=== PATIENT | female | born 1935 | race Caucasian/White ===

== ENCOUNTER 2022-07-14 11:56 | Inpatient (IN) | payer MEDICARE, OTHER ==
[~2022-07-14] VITALS: Ht 165.1 cm; Wt 60.8 kg
[2022-07-15 20:40] VITALS: BP 127/59
[2022-07-15] MEDS ORDERED: NITR100C6 PO (22:39)
[2022-07-15] MEDS ORDERED: LOSA100T31 PO (22:39)
[2022-07-15] MEDS ORDERED: RISP0.5T5 PO (22:39)
[2022-07-15] MEDS ORDERED: MIRT-93 PO (22:39)
[2022-07-15] MEDS ORDERED: AMLO10TA4 PO (22:39)
[2022-07-15] MEDS ORDERED: REMEDY ESSENTIAL ZINC PASTE 113 GM TOP PRN (22:45)
[2022-07-15] MEDS: NITROFURANTOIN/NITROFURAN MAC 100 MG CAPSULE PO SCH (23:31)
[2022-07-15] MEDS: risperiDONE 0.5 MG TABLET PO SCH (23:31)
[2022-07-15] MEDS: ACETAMINOPHEN ES 500 MG TABLET PO PRN (23:31)
[2022-07-15] MEDS: MIRTAZAPINE 15 MG TABLET PO SCH (23:31)
[2022-07-16 04:50] VITALS: BP 132/65
[2022-07-16] MEDS: OXYCODONE HCL 5 MG TABLET PO PRN ×2 (07:46→17:40)
[2022-07-16 07:59] VITALS: BP 128/55
[2022-07-16] MEDS: NITROFURANTOIN/NITROFURAN MAC 100 MG CAPSULE PO SCH ×2 (08:24→17:41)
[2022-07-16] MEDS: AMLODIPINE 10 MG TABLET PO SCH (08:24)
[2022-07-16] MEDS: LOSARTAN POTASSIUM 50 MG TABLET PO SCH (08:24)
[2022-07-16 16:07] VITALS: BP 116/56
[2022-07-16 20:33] VITALS: BP 150/60
[2022-07-16] MEDS: MIRTAZAPINE 15 MG TABLET PO SCH (20:46)
[2022-07-16] MEDS: risperiDONE 0.5 MG TABLET PO SCH (20:46)
[2022-07-17 04:12] VITALS: BP 133/62
--- NOTE | 2022-07-17 05:45 | NUR ---
patient is alert, oriented to herself and family, no sob, respirations are even nonlabored, skin warm and dry to to touch, right hip incision is dry and clean, dressing in place, both heel skin inspected no issues noted, floated on the pillows, sacral area skin inspected, no issues noted, turned and repositioned every 2 hours while in bed, no events or distress noted overnight.
[2022-07-17] MEDS: OXYCODONE HCL 5 MG TABLET PO PRN (06:00)
[2022-07-17] MEDS: NITROFURANTOIN/NITROFURAN MAC 100 MG CAPSULE PO SCH ×2 (06:00→17:47)
[2022-07-17 08:00] VITALS: BP 138/78
[2022-07-17] MEDS: LOSARTAN POTASSIUM 50 MG TABLET PO SCH (09:01)
[2022-07-17] MEDS: AMLODIPINE 10 MG TABLET PO SCH (09:01)
[2022-07-17 15:38] VITALS: BP 126/55
--- NOTE | 2022-07-17 19:00 | NUR ---
RECD PT IN BED, NO DISTRESS NOTED, REPOSITIONED FOR COMFORT,NEEDS ATTENDED TO.CHECKED FOR ANY DISCOMFORTS.
--- NOTE | 2022-07-17 19:00 | NUR ---
RECD PT IN BED, ALERT/ORIENTEDX3, ABLE TO MAKE NEEDS KNOWN, REPOSITIONED FOR COMFORT.CHECK BLADDER FOR DISTENTION, NONE NOTED. NO COMPLAINTS OF PAIN PRESENTED.
--- NOTE | 2022-07-17 19:16 | NUR ---
BED ALARM NOT WORKING: Engineering here to assess bed at 1850, stated that everything would need to be removed from bed, including pt, in order to fix the problem. Endorsed to night nurse who said that she will change the pt's bed tonight.
[2022-07-17 20:00] VITALS: BP 102/63
[2022-07-17] MEDS: MIRTAZAPINE 15 MG TABLET PO SCH (21:26)
[2022-07-17] MEDS: risperiDONE 0.5 MG TABLET PO SCH (21:26)
--- NOTE | 2022-07-18 | NUR ---
HAD A QUIET NOC.
[2022-07-18 04:00] VITALS: BP 138/66
[2022-07-18] MEDS: NITROFURANTOIN/NITROFURAN MAC 100 MG CAPSULE PO SCH ×2 (06:27→17:28)
[2022-07-18 06:44] LABS: HEMATOCRIT 25.1 % (31.2-41.9); MEAN CORPUSCULAR HEMOGLOBIN 29.3 uug (24.7-32.8); MEAN CORPUSCULAR VOLUME 84.4 fL (75.5-95.3); PLATELET COUNT (AUTO) 277 K/uL (179-408)
[2022-07-18 07:25] LABS: THYROID STIMULATING HORMONE 1.461 mIU/mL (0.358-3.740)
[2022-07-18 07:51] LABS: ALANINE AMINOTRANSFERASE 22 U/L (14-59); ALKALINE PHOSPHATASE 83 U/L (50-136); ASPARTATE AMINOTRANSFERASE 34 U/L (15-37); BILIRUBIN,TOTAL 0.5 mg/dL (0.2-1.0); CARBON DIOXIDE 28 mmol/L (21-32); CHLORIDE 101 mmol/L (98-107); CHOLESTEROL 175 mg/dL (<200); CREATININE 1.2 mg/dL (0.6-1.3); GLUCOSE 123 mg/dL (74-106); HDL CHOLESTEROL 40 mg/dL (40-60); PHOSPHOROUS 3.1 mg/dL (2.5-4.9); POTASSIUM 3.6 mmol/L (3.5-5.1); TOTAL PROTEIN, SERUM 6.2 g/dL (6.4-8.2); TRIGLYCERIDES 108 MG/DL (30-150); UREA NITROGEN, BLOOD 33 mg/dL (7-18)
[2022-07-18 08:00] VITALS: BP 112/44
[2022-07-18] MEDS: AMLODIPINE 10 MG TABLET PO SCH (09:03)
[2022-07-18] MEDS: LOSARTAN POTASSIUM 50 MG TABLET PO SCH (09:03)
[2022-07-18] MEDS: ACETAMINOPHEN ES 500 MG TABLET PO PRN (09:04)
--- NOTE | 2022-07-18 09:19 | NUR ---
INDIVIDUALIZED PLAN OF CARE
[2022-07-18 16:00] VITALS: BP 105/52
[2022-07-18] MEDS: GLUCERNA SHAKE 237 ML CAN PO SCH (17:36)
--- NOTE | 2022-07-18 19:00 | NUR ---
resting in bed,alert and oriented x3, no acute distress noted.needs attended to.kept dry and clean.
--- NOTE | 2022-07-18 19:24 | NUR ---
RECEIVED REPORT FROM [facility] SHIFT RN. PATIENT IS ALERT AND ORIENTED X1-[address] [place] WITH MINIMAL BHUTANESE. VITAL SIGNS STABLE. PATIENT TOLERATES PO MEDICATIONS AND DIET WELL. PATIENT HAD COMPLAINT OF PAIN. RN GAVE PAIN MEDIATIONS ORDERED. PATIENT EXPRESSED RELIEF. PATIENT PARTICIPATES WITH PHYSICAL AND OCCUPATIONAL THERAPY PER SCHEDULE. PATIENT VOIDS ADEQUATELY. FAMILY VISITED PATIENT. UPDATED ON PLAN OF CARE. NO ACUTE DISTRESS. ALL NEEDS MET AT THIS TIME. CALL LIGHT WITHIN REACH. FALL PRECAUTIONS IN PLACE. RN ENDORSED CONTINUATION OF CARE TO [facility] SHIFT RN.
[2022-07-18 20:10] VITALS: BP 136/64
[2022-07-18] MEDS: MIRTAZAPINE 15 MG TABLET PO SCH (21:38)
[2022-07-18] MEDS: risperiDONE 0.5 MG TABLET PO SCH (21:40)
[2022-07-18] MEDS: OXYCODONE HCL 5 MG TABLET PO PRN (22:19)
--- NOTE | 2022-07-18 22:19 | NUR ---
medicated for left hip pain,relief afforded after an hour, slept at short intervals. call lite w/i abraham.
--- NOTE | 2022-07-19 03:22 | NUR ---
abductor pillow in place. repositioned.
[2022-07-19 04:21] VITALS: BP 110/50
--- NOTE | 2022-07-19 06:30 | NUR ---
BLADDER SCAN DONE 645 ML. NOTED, STRAIGHT CATH ASEPTICALLY ,OBTAINED 650 ML OF YANETH URINE,PROCEDURE TOLERATED WELL BY PT.CLEANED AND KEPT DRY.
[2022-07-19] MEDS: OXYCODONE HCL 5 MG TABLET PO PRN ×2 (06:51→06:52)
[2022-07-19] MEDS: NITROFURANTOIN/NITROFURAN MAC 100 MG CAPSULE PO SCH (06:51)
[2022-07-19 07:34] VITALS: BP 117/61
--- NOTE | 2022-07-19 07:47 | NUR ---
ENDORSED TO AM NURSE,PAIN MED GIVEN.CONTINUE MONITOR EFFECTIVENESS OF MED.
[2022-07-19] MEDS: AMLODIPINE 10 MG TABLET PO SCH (09:00)
[2022-07-19] MEDS: LOSARTAN POTASSIUM 50 MG TABLET PO SCH ×2 (09:00→14:19)
[2022-07-19] MEDS: GLUCERNA SHAKE 237 ML CAN PO SCH ×2 (09:43→17:13)
[2022-07-19] MEDS: PROTEIN SUPPLEMENT (PROSTAT) 30 ML LIQUID PO SCH (09:44)
--- NOTE | 2022-07-19 14:25 | NUR ---
DAUGHTER CAME TO VISIT THE PATIENT. PATIENT NOTED TO BE REFUSING PHYSICAL THERAPY. FAMILY NOTED PATIENT SHAKING. PATIENT'S DAUGHTER REQUESTED HER BLOOD PRESSURE BE TAKEN. PHYSICAL THERAPISTS NOTED BLOOD PRESSURE AT 122/42. PATIENT DAUGHTER EXPRESSED CONCERN WITH RN FOR NOT GIVING BLOOD PRESSURE MEDICATION IN THE MORNING. RN NOTIFIES PATIENT DAUGHTER THAT BLOOD PRESSURE WAS 99/48 AND RN HELD RN FELT IT WAS UNSAFE TO GIVEN. PATIENT DAUGHTER'S VERBALIZED: "IF HER BLOOD PRESSURE WAS LOW, THEN WAIT 1-2 HOURS. YOU CANNOT SKIP MEDICATION." RN EDUCATES DAUGHTER REGARDING THE RISK FOR DROPPING HER BLOOD PRESSURE. PATIENT DAUGHTER STATES SHE UNDERSTANDS, HOWEVER HAS ISSUES WITH BLOOD PRESSURE REGIME. PATIENT REQUESTS LOSARTAN TO BE GIVEN NOW, AND AMLODIPINE TO BE GIVEN LATER AT 1999. AFTER TODAY, PATIENT WANTS LOSARTAN TO BE GIVEN AT 10:30AM AND AMLODIPINE TO BE SCHEDULED FOR 1800. RN REQUEST CHANGES WITH PHARMACY. PATIENT STABLE. NO SIGNS AND SYMPTOMS OF ACUTE DISTRESS. PLAN OF CARE CONTINUES.
[2022-07-19 16:02] VITALS: BP 109/52
[2022-07-19 20:00] VITALS: BP 117/56
[2022-07-19] MEDS ORDERED: AMLODIPINE 10 MG TABLET PO ONE (20:00)
--- NOTE | 2022-07-19 20:04 | NUR ---
RECEIVED REPORT FROM [facility] SHIFT RN. PATIENT IS ALERT AND ORIENTED X1-2 AND SPEAKS CITIZEN OF [place] WITH MINIMAL MALTESE. VITAL SIGNS STABLE. PATIENT TOLERATES PO MEDICATIONS AND DIET WELL. HOWEVER REFUSES TO EAT MUCH DURING SHIFT. RN ENCOURAGES PATIENT TO EAT, HOWEVER PATIENT CONTINUES TO PUSH FOOD/TRAY AWAY. PATIENT DENIES PAIN. PATIENT PARTICIPATES WITH PHYSICAL AND OCCUPATIONAL THERAPY PER SCHEDULE. PATIENT VOIDS ADEQUATELY. FAMILY VISITED PATIENT. RN CHANGED BLOOD PRESSURE TIME PER FAMILY REQUEST. RN BLADDER SCAN PATIENT AT 1350 NOTED 275CC AND 300CC IN BLADDER. RN SCAN PATIENT AT 1730 NOTED 523CC. RN INSERTED STRAIGHT CATHETER INTO PATIENT WITH FELLOW RN. ABLE TO DRAIN 500CC OF URINE. BLADDER NO LONGER DISTENDED. NO ACUTE DISTRESS. ALL NEEDS MET AT THIS TIME. CALL LIGHT WITHIN REACH. FALL PRECAUTIONS IN PLACE. RN ENDORSED CONTINUATION OF CARE TO [facility] SHIFT RN.
[2022-07-19] MEDS: MIRTAZAPINE 15 MG TABLET PO SCH (20:25)
[2022-07-19] MEDS: risperiDONE 0.5 MG TABLET PO SCH (20:26)
[2022-07-20 04:00] VITALS: BP 134/57
--- NOTE | 2022-07-20 05:48 | NUR ---
Pt didn't void since last straight cath. Bladder scan done every 6-8 hrs. At 0030 scanned 160 ml. At 0530 scanned 221 ml. Bladder not distended. Straight cath not yet indicated. Will endorse to incoming shift.
[2022-07-20] MEDS: PROTEIN SUPPLEMENT (PROSTAT) 30 ML LIQUID PO SCH (08:48)
[2022-07-20] MEDS: GLUCERNA SHAKE 237 ML CAN PO SCH ×2 (08:48→17:11)
[2022-07-20 08:56] VITALS: BP 103/73
[2022-07-20] MEDS: LOSARTAN POTASSIUM 50 MG TABLET PO SCH (10:30)
--- NOTE | 2022-07-20 10:45 | NUR ---
Patient blood pressure is 103/73, pulse 69, Losartan 100 mg not given.
[2022-07-20 12:30] VITALS: BP 106/74
--- NOTE | 2022-07-20 13:39 | NUR ---
INTERDISCIPLINARY TEAM CONFERENCE
--- NOTE | 2022-07-20 14:01 | NUR ---
Patient was unable to void, bladder was scanned at 13:30, 306 ml retained, since it's less than 400 ml, no straight indicated yet.
--- NOTE | 2022-07-20 16:00 | NUR ---
Patient is received in her room. Patient is A/O X 2 to person, place. Patient is compliant with medications, confused at times, resistant to care, vital signs within normal limits, no distress noted, denies pain or any discomfort. Patient presents soft abdomen but still not voiding, patient will be scanned again and straight cath as needed.
[2022-07-20 16:59] VITALS: BP 109/54
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
[2022-07-20] MEDS: AMLODIPINE 10 MG TABLET PO SCH (17:13)
--- NOTE | 2022-07-20 18:41 | NUR ---
Patient was bladder scanned with a total of 412 ml. Patient was straight cath and 400 ml was removed from her bladder.
[2022-07-20 20:00] VITALS: BP 124/58
[2022-07-20] MEDS: MIRTAZAPINE 15 MG TABLET PO SCH (20:30)
[2022-07-20] MEDS: risperiDONE 0.5 MG TABLET PO SCH (20:30)
[2022-07-20 20:33] VITALS: BP 117/54
[2022-07-21 04:00] VITALS: BP 134/78
--- NOTE | 2022-07-21 07:45 | NUR ---
Bladder scan done, 355 ml. Pt hasn't voided on her own for 3 days. Guzmán catheter inserted aseptically as ordered.
[2022-07-21] MEDS: PROTEIN SUPPLEMENT (PROSTAT) 30 ML LIQUID PO SCH (08:00)
[2022-07-21] MEDS: GLUCERNA SHAKE 237 ML CAN PO SCH ×2 (09:41→17:27)
[2022-07-21 10:30] VITALS: BP 105/50
[2022-07-21] MEDS: LOSARTAN POTASSIUM 50 MG TABLET PO SCH (10:30)
[2022-07-21 11:48] VITALS: BP 101/50
--- NOTE | 2022-07-21 13:04 | NUR ---
Nursing- Patient remains with apodaca catheter intact, secured , draining yellow james urine connected to drainage bag. Monitored b/p , running low, 85/45 HR 63 will rechecked again in a later time, denies any dizziness .
[2022-07-21] MEDS: ACETAMINOPHEN ES 500 MG TABLET PO PRN (14:05)
[2022-07-21 15:21] VITALS: BP 140/56
--- NOTE | 2022-07-21 16:06 | NUR ---
Nursing - Not interactive, but making her simple needs known to the staff. Per Unit Sec. patient's daughter was in to visit patient, appeared in a calmer mood ,was encouraged to verbalized any questions she needed some answers .Patient was repositioned at a regular intervals.
[2022-07-21] MEDS: AMLODIPINE 10 MG TABLET PO SCH (17:29)
[2022-07-21 20:00] VITALS: BP 128/58
[2022-07-21] MEDS: MIRTAZAPINE 15 MG TABLET PO SCH (21:27)
[2022-07-21] MEDS: risperiDONE 0.5 MG TABLET PO SCH (21:27)
[2022-07-22 04:00] VITALS: BP 131/60
[2022-07-22 07:57] VITALS: BP 129/98
--- NOTE | 2022-07-22 08:00 | NUR ---
Received patient in bed conscious and coherent. With apodaca catheter intact connected to urine bag draining well. No signs of distress. No SOB. Vital signs taken and recorded Needs attended
[2022-07-22 08:42] LABS: HEMATOCRIT 24.7 % (31.2-41.9); MEAN CORPUSCULAR HEMOGLOBIN 28.7 uug (24.7-32.8); MEAN CORPUSCULAR VOLUME 85.1 fL (75.5-95.3); PLATELET COUNT (AUTO) 356 K/uL (179-408)
[2022-07-22] MEDS: PROTEIN SUPPLEMENT (PROSTAT) 30 ML LIQUID PO SCH (08:49)
[2022-07-22] MEDS: GLUCERNA SHAKE 237 ML CAN PO SCH ×2 (08:49→17:50)
[2022-07-22 08:50] LABS: CARBON DIOXIDE 28 mmol/L (21-32); CHLORIDE 104 mmol/L (98-107); CREATININE 1.1 mg/dL (0.6-1.3); GLUCOSE 108 mg/dL (74-106); POTASSIUM 3.7 mmol/L (3.5-5.1); UREA NITROGEN, BLOOD 41 mg/dL (7-18)
[2022-07-22] MEDS: LOSARTAN POTASSIUM 50 MG TABLET PO SCH (10:42)
[2022-07-22] MEDS: ACETAMINOPHEN ES 500 MG TABLET PO PRN (14:40)
[2022-07-22 16:14] VITALS: BP 129/66
[2022-07-22] MEDS: AMLODIPINE 10 MG TABLET PO SCH (17:49)
[2022-07-22 20:09] VITALS: BP 108/51
[2022-07-22] MEDS: MIRTAZAPINE 15 MG TABLET PO SCH (20:29)
[2022-07-22] MEDS: OXYCODONE HCL 5 MG TABLET PO PRN (20:29)
[2022-07-22] MEDS: risperiDONE 0.5 MG TABLET PO SCH (20:30)
--- NOTE | 2022-07-23 04:27 | NUR ---
AAOx4 Admitted for left hip athroplasty. VSS Left hip dressing clean dry and intact. Guzmán cathetr intact draining yellow urine. All needs attended. Kept comfortable. All due meds given. No complaints presented during the shift. Will monitor patient.
[2022-07-23 07:34] VITALS: BP 110/49
[2022-07-23] MEDS: PROTEIN SUPPLEMENT (PROSTAT) 30 ML LIQUID PO SCH (08:24)
[2022-07-23] MEDS: GLUCERNA SHAKE 237 ML CAN PO SCH ×2 (08:24→17:39)
[2022-07-23] MEDS: LOSARTAN POTASSIUM 50 MG TABLET PO SCH (10:20)
[2022-07-23] MEDS: OXYCODONE HCL 5 MG TABLET PO PRN (14:20)
--- NOTE | 2022-07-23 14:20 | NUR ---
Patient complaining of pain 8/10 pain score, Oxycodone 5mg tab given as ordered. Observed accordingly
--- NOTE | 2022-07-23 15:30 | NUR ---
Seen by physical therapist
[2022-07-23 16:00] VITALS: BP 101/65
--- NOTE | 2022-07-23 17:30 | NUR ---
Seen and examined by Dr. Mathur, informed of the redness/blister on right heel and left foot. Applied xeroform covered with gauze to protect the heels. Offloading on both heels. Ordered wound consult and air bed mattress. Closely monitored Addendum: 07/23/22 at 1824 by JAMIR JOSHUA RN Correction right heel redness/blister and left heel redness. Seen by Dr. Mathur
[2022-07-23] MEDS: AMLODIPINE 10 MG TABLET PO SCH (17:39)
--- NOTE | 2022-07-23 18:06 | NUR ---
Changed wound dressing on left hip clean and dry. Turn patient from side to side every 2 hours. Needs attended
[2022-07-23] MEDS: MIRTAZAPINE 15 MG TABLET PO SCH (20:30)
[2022-07-23] MEDS: risperiDONE 0.5 MG TABLET PO SCH (20:30)
[2022-07-23 20:40] VITALS: BP 113/53
--- NOTE | 2022-07-24 03:55 | NUR ---
AAOx 3-4 Left hip dressing clean dry and intact. VSS Fall precautions maintained. Bilateral heel elevated up on pillow. Guzmán catheter intact draining yellow urine. All needs attended. Abduction pillow in between legs. All due meds given without difficulty. No acute distress noted. Kept comfortable.
[2022-07-24 04:38] VITALS: BP 128/55
--- NOTE | 2022-07-24 07:30 | NUR ---
[facility] Nursing Notes: Patient in bed awake, verbally responsive, no S/S of discomfort or distress noted. Abduction pillow in between legs as ordered, fall and safety precaution implemented. call light with in reach. Will continue to monitor.
[2022-07-24 07:48] VITALS: BP 125/62
[2022-07-24] MEDS: GLUCERNA SHAKE 237 ML CAN PO SCH ×2 (07:51→17:00)
[2022-07-24] MEDS: PROTEIN SUPPLEMENT (PROSTAT) 30 ML LIQUID PO SCH (07:51)
[2022-07-24] MEDS: LOSARTAN POTASSIUM 50 MG TABLET PO SCH (10:27)
[2022-07-24] MEDS: OXYCODONE HCL 5 MG TABLET PO PRN (14:55)
[2022-07-24 15:44] VITALS: BP 119/64
[2022-07-24] MEDS: AMLODIPINE 10 MG TABLET PO SCH (17:47)
[2022-07-24] MEDS: MIRTAZAPINE 15 MG TABLET PO SCH (20:30)
[2022-07-24] MEDS: risperiDONE 0.5 MG TABLET PO SCH (20:31)
[2022-07-24 20:57] VITALS: BP 115/58
[2022-07-25 04:23] VITALS: BP 142/70
[2022-07-25] MEDS: OXYCODONE HCL 5 MG TABLET PO PRN ×2 (05:05→13:37)
[2022-07-25 08:04] VITALS: BP 141/71
[2022-07-25] MEDS: PROTEIN SUPPLEMENT (PROSTAT) 30 ML LIQUID PO SCH (09:25)
[2022-07-25] MEDS: GLUCERNA SHAKE 237 ML CAN PO SCH ×2 (09:25→17:25)
[2022-07-25] MEDS: LOSARTAN POTASSIUM 50 MG TABLET PO SCH (11:10)
--- NOTE | 2022-07-25 12:54 | NUR ---
WOUND CARE CONSULT: PT PRESENTS WITH RT LATERAL LOWER LEG SKIN TEAR AND BILATERAL HEEL INTACT BLISTERS. PT HAS BEEN UNCOOPERATIVE AT TIMES, PER NURSING STAFF. DR LESTER CALLED FOR DPM CONSULT. DISCUSSED SKIN PROTECTION WITH NURSING STAFF. [facility] IN AGREEMENT WITH PLAN OF CARE.
[2022-07-25] MEDS ORDERED: BISACODYL 10 MG SUPP.RECT RC PRN (13:30)
--- NOTE | 2022-07-25 13:30 | NUR ---
Pt's dtr Gene and Pt's at bedside. Gene asking if her mother's pain meds can be scheduled instead on PRN because of her confusion and inability to communicate pain, Dr. Ramachandran notified, he updated her pain medication orders. Gene states that she has spoken to Peter, Perioperative Nurse, already but she still has concerns about her mom coming home in a week, about her still needing a apodaca catherter and who will care for it. Pt would like to speak to an MD. I notified Dr. Ramachandran who will be back tomorrow. Will endorse questions to night nurse to have an MD talk to the dtr next time she is here.
[2022-07-25 15:05] VITALS: BP 141/87
[2022-07-25] MEDS: AMLODIPINE 10 MG TABLET PO SCH (18:29)
--- NOTE | 2022-07-25 20:00 | NUR ---
NSG: Received patient lying in bed. alert and oriented x4. admitted for left hip arthroplasty. VSS Left hip dressing clean dry and intact. f/c patent draining yellow urine. All needs attended. Kept comfortable. All due meds given. call light w/in reach.
[2022-07-25 20:26] VITALS: BP 137/53
[2022-07-25] MEDS: risperiDONE 0.5 MG TABLET PO SCH (21:21)
[2022-07-25] MEDS: OXYCODONE/APAP 5-325 MG TABLET PO SCH (21:21)
[2022-07-25] MEDS: MIRTAZAPINE 15 MG TABLET PO SCH (21:21)
[2022-07-26] MEDS: OXYCODONE HCL 5 MG TABLET PO PRN (02:43)
[2022-07-26 04:55] VITALS: BP 122/60
--- NOTE | 2022-07-26 05:00 | NUR ---
Nursing - resting in bed comfortably. patient is not interactive, but making her simple needs known to the staff. prn for pain given x1 and effective. Patient was repositioned at a regular intervals. kept clean and dry. keep the both heals off the bed with pillow. call light w/in reach.
[2022-07-26] MEDS: OXYCODONE/APAP 5-325 MG TABLET PO SCH ×3 (06:11→21:28)
[2022-07-26 07:44] VITALS: BP 109/47
[2022-07-26 08:00] VITALS: BP 113/53
[2022-07-26] MEDS: GLUCERNA SHAKE 237 ML CAN PO SCH ×2 (08:00→17:00)
[2022-07-26] MEDS: PROTEIN SUPPLEMENT (PROSTAT) 30 ML LIQUID PO SCH (08:00)
[2022-07-26] MEDS: LOSARTAN POTASSIUM 50 MG TABLET PO SCH (11:03)
[2022-07-26 15:04] VITALS: BP 121/83
[2022-07-26] MEDS: AMLODIPINE 10 MG TABLET PO SCH (18:00)
[2022-07-26] MEDS: MIRTAZAPINE 15 MG TABLET PO SCH (20:42)
[2022-07-26] MEDS: risperiDONE 0.5 MG TABLET PO SCH (20:44)
[2022-07-26 21:44] VITALS: BP 132/62
[2022-07-27] MEDS: OXYCODONE/APAP 5-325 MG TABLET PO SCH ×2 (06:22→13:56)
[2022-07-27 06:30] VITALS: BP 126/64
[2022-07-27 07:26] LABS: HEMATOCRIT 26.9 % (31.2-41.9); MEAN CORPUSCULAR HEMOGLOBIN 28.2 uug (24.7-32.8); MEAN CORPUSCULAR VOLUME 85.2 fL (75.5-95.3); PLATELET COUNT (AUTO) 539 K/uL (179-408)
[2022-07-27 07:46] VITALS: BP 123/55
[2022-07-27 07:51] LABS: ALANINE AMINOTRANSFERASE 17 U/L (14-59); ALKALINE PHOSPHATASE 93 U/L (50-136); ASPARTATE AMINOTRANSFERASE 10 U/L (15-37); BILIRUBIN,TOTAL 0.5 mg/dL (0.2-1.0); CARBON DIOXIDE 25 mmol/L (21-32); CHLORIDE 104 mmol/L (98-107); CREATININE 1.3 mg/dL (0.6-1.3); GLUCOSE 122 mg/dL (74-106); MAGNESIUM 2.3 mg/dL (1.8-2.4); PHOSPHOROUS 3.7 mg/dL (2.5-4.9); TOTAL PROTEIN, SERUM 6.1 g/dL (6.4-8.2); UREA NITROGEN, BLOOD 34 mg/dL (7-18)
[2022-07-27] MEDS: PROTEIN SUPPLEMENT (PROSTAT) 30 ML LIQUID PO SCH (08:26)
[2022-07-27] MEDS: GLUCERNA SHAKE 237 ML CAN PO SCH ×2 (08:26→16:49)
[2022-07-27] MEDS: CHOLECALCIFEROL 400 UNITS TABLET PO SCH (09:45)
--- NOTE | 2022-07-27 09:55 | NUR ---
Pt's daughter Michell, , at bedside asked to speak to both Dr. Walker and Dr. Ramachandran. We arranged for her to speak to Dr. Ramachandran at noon and gave him her phone number. Also, Dr. Walker said that he would call her later and I gave him her phone number as well. I discussed with Michell the report from pt's Left hip xray on 07/25, discussed pain management, and discussed bladder management. Michell verbalized understanding and is looking forward to speaking with both MDs later today.
[2022-07-27] MEDS: TAMSULOSIN HCL 0.4 MG CAP.SR.24H PO SCH ×2 (10:03→21:41)
[2022-07-27] MEDS: LOSARTAN POTASSIUM 50 MG TABLET PO SCH (11:25)
--- NOTE | 2022-07-27 13:38 | NUR ---
Dr Walker at pt's bedside, asking pt questions in [place]yr[place], her primary language. Pt states she is having pain but can't state where. When pt is asked to state her daughter's name she says, Why are you asking me? I don't know.
--- NOTE | 2022-07-27 14:06 | NUR ---
INTERDISCIPLINARY TEAM CONFERENCE
[2022-07-27 14:59] VITALS: BP 117/64
[2022-07-27] MEDS: AMLODIPINE 10 MG TABLET PO SCH (18:52)
[2022-07-27] MEDS: MIRTAZAPINE 15 MG TABLET PO SCH (20:36)
[2022-07-27] MEDS: risperiDONE 0.5 MG TABLET PO SCH (20:36)
[2022-07-27] MEDS: ACETAMINOPHEN ES 500 MG TABLET PO SCH (21:41)
[2022-07-27 22:33] VITALS: BP 145/76
[2022-07-28] MEDS: OXYCODONE HCL 5 MG TABLET PO PRN (03:33)
[2022-07-28 04:47] VITALS: BP 112/60
[2022-07-28] MEDS: ACETAMINOPHEN ES 500 MG TABLET PO SCH ×3 (05:40→21:36)
[2022-07-28 08:00] VITALS: BP 128/57
[2022-07-28] MEDS: PROTEIN SUPPLEMENT (PROSTAT) 30 ML LIQUID PO SCH (08:00)
[2022-07-28] MEDS: GLUCERNA SHAKE 237 ML CAN PO SCH (08:00)
[2022-07-28] MEDS: CHOLECALCIFEROL 400 UNITS TABLET PO SCH (08:47)
[2022-07-28] MEDS: LOSARTAN POTASSIUM 50 MG TABLET PO SCH (09:54)
--- NOTE | 2022-07-28 10:56 | NUR ---
WOUND CARE CONSULT: RECEIVED CONSULT FOR LOWER LEG WOUND. PT IS FOLLOWED BY PODIATRY. DEFER TO DPM FOR WOUND TREATMENT PLAN. DISCUSSED SKIN PROTECTION WITH NURSING STAFF. MD IN AGREEMENT WITH PLAN OF CARE.
[2022-07-28 15:36] VITALS: BP 127/59
[2022-07-28] MEDS: ENSURE ENLIVE (VAN) 240 ML LIQUID PO SCH (16:47)
[2022-07-28] MEDS: AMLODIPINE 10 MG TABLET PO SCH (18:25)
[2022-07-28 20:33] VITALS: BP 112/56
[2022-07-28] MEDS: MIRTAZAPINE 15 MG TABLET PO SCH (20:35)
[2022-07-28] MEDS: TAMSULOSIN HCL 0.4 MG CAP.SR.24H PO SCH (20:35)
[2022-07-28] MEDS: risperiDONE 0.5 MG TABLET PO SCH (20:35)
[2022-07-29] MEDS: OXYCODONE HCL 5 MG TABLET PO PRN (03:29)
[2022-07-29 04:58] VITALS: BP 103/58
[2022-07-29] MEDS: ACETAMINOPHEN ES 500 MG TABLET PO SCH ×3 (05:56→21:30)
--- NOTE | 2022-07-29 06:42 | NUR ---
No significant event reported all night. All needs attended and met. Continue current rehab plan of care.
[2022-07-29 08:00] VITALS: BP 104/49
[2022-07-29] MEDS: ENSURE ENLIVE (VAN) 240 ML LIQUID PO SCH ×3 (08:00→16:20)
[2022-07-29] MEDS: PROTEIN SUPPLEMENT (PROSTAT) 30 ML LIQUID PO SCH (08:00)
[2022-07-29] MEDS: CHOLECALCIFEROL 400 UNITS TABLET PO SCH (08:20)
--- NOTE | 2022-07-29 09:05 | NUR ---
dc folly catheter per md orders
--- NOTE | 2022-07-29 09:32 | NUR ---
pt is refusing to eat breakfast charge nurse and md made aware
[2022-07-29] MEDS: LOSARTAN POTASSIUM 50 MG TABLET PO SCH (09:34)
[2022-07-29 16:14] VITALS: BP 105/48
--- NOTE | 2022-07-29 16:47 | NUR ---
pt did not urinate bladder scan done it shows 48 cc md made aware
[2022-07-29 17:13] LABS: HEMATOCRIT 24.7 % (31.2-41.9); MEAN CORPUSCULAR VOLUME 84.6 fL (75.5-95.3); PLATELET COUNT (AUTO) 487 K/uL (179-408)
[2022-07-29 17:33] LABS: ALANINE AMINOTRANSFERASE 18 U/L (14-59); ALKALINE PHOSPHATASE 90 U/L (50-136); ASPARTATE AMINOTRANSFERASE 46 U/L (15-37); BILIRUBIN,TOTAL 0.4 mg/dL (0.2-1.0); CARBON DIOXIDE 24 mmol/L (21-32); CHLORIDE 106 mmol/L (98-107); GLUCOSE 126 mg/dL (74-106); TOTAL PROTEIN, SERUM 5.9 g/dL (6.4-8.2); UREA NITROGEN, BLOOD 51 mg/dL (7-18)
[2022-07-29] MEDS: AMLODIPINE 10 MG TABLET PO SCH (17:47)
[2022-07-29] MEDS: TAMSULOSIN HCL 0.4 MG CAP.SR.24H PO SCH (20:42)
[2022-07-29] MEDS: MIRTAZAPINE 15 MG TABLET PO SCH (20:42)
[2022-07-29] MEDS: risperiDONE 0.5 MG TABLET PO SCH (20:42)
[2022-07-29 20:53] VITALS: BP 96/52
[2022-07-30] MEDS: OXYCODONE HCL 5 MG TABLET PO PRN (00:02)
--- NOTE | 2022-07-30 01:46 | NUR ---
Patient diaper slightly wet with urine, bladder scan performed 223 ml. Will continue to monitor. Turned and repositioned for comfort.
[2022-07-30 04:04] VITALS: BP 114/60
[2022-07-30] MEDS: ACETAMINOPHEN ES 500 MG TABLET PO SCH ×2 (05:59→15:13)
--- NOTE | 2022-07-30 06:06 | NUR ---
Bladder scan done, 69cc noted.
[2022-07-30] MEDS: PROTEIN SUPPLEMENT (PROSTAT) 30 ML LIQUID PO SCH (09:33)
[2022-07-30] MEDS: CHOLECALCIFEROL 400 UNITS TABLET PO SCH (09:33)
[2022-07-30] MEDS: ENSURE ENLIVE (VAN) 240 ML LIQUID PO SCH ×2 (09:33→12:13)
[2022-07-30 11:53] LABS: MEAN CORPUSCULAR HEMOGLOBIN 27.8 uug (24.7-32.8); MEAN CORPUSCULAR VOLUME 84.3 fL (75.5-95.3); PLATELET COUNT (AUTO) 517 K/uL (179-408)
[2022-07-30 12:33] LABS: ALANINE AMINOTRANSFERASE 16 U/L (14-59); ALKALINE PHOSPHATASE 98 U/L (50-136); ASPARTATE AMINOTRANSFERASE 40 U/L (15-37); BILIRUBIN,TOTAL 0.4 mg/dL (0.2-1.0); CARBON DIOXIDE 26 mmol/L (21-32); CHLORIDE 108 mmol/L (98-107); CREATININE 1.6 mg/dL (0.6-1.3); GLUCOSE 112 mg/dL (74-106); MAGNESIUM 2.4 mg/dL (1.8-2.4); PHOSPHOROUS 3.5 mg/dL (2.5-4.9); POTASSIUM 3.8 mmol/L (3.5-5.1); TOTAL PROTEIN, SERUM 6.2 g/dL (6.4-8.2); UREA NITROGEN, BLOOD 49 mg/dL (7-18)
--- NOTE | 2022-07-30 15:57 | NUR ---
Patient got discharged today at 330pm. She went home. Patient got picked up by the ambulance. She was stable, with no s/s of pain nor distress noted.
== END 2022-07-30 03:30 | disposition home health service (06) | DRG 559 ==
LOC: MEDSURG3 07-15 20:45
PROVIDERS: ADMIT Physical Medicine & Rehabilitation Pain Medicine; ATTEND Physical Medicine & Rehabilitation Pain Medicine
DX: S72.002D Fracture of unspecified part of neck of left femur, subsequent encounter for closed fracture with routine healing (principal); G93.41 Metabolic encephalopathy; N17.0 Acute kidney failure with tubular necrosis; D68.59 Other primary thrombophilia; I50.32 Chronic diastolic (congestive) heart failure; E44.0 Moderate protein-calorie malnutrition; N39.0 Urinary tract infection, site not specified; I11.0 Hypertensive heart disease with heart failure; Z96.642 Presence of left artificial hip joint; D64.9 Anemia, unspecified; E78.5 Hyperlipidemia, unspecified; E86.0 Dehydration; I50.9 Heart failure, unspecified; L89.619 Pressure ulcer of right heel, unspecified stage; L89.626 Pressure-induced deep tissue damage of left heel; M41.9 Scoliosis, unspecified; Z86.73 Personal history of transient ischemic attack (TIA), and cerebral infarction without residual deficits; E11.9 Type 2 diabetes mellitus without complications; W18.30XD Fall on same level, unspecified, subsequent encounter; I95.9 Hypotension, unspecified; R90.82 White matter disease, unspecified; F32.A Depression, unspecified; F03.90 Unspecified dementia, unspecified severity, without behavioral disturbance, psychotic disturbance, mood disturbance, and anxiety; N13.9 Obstructive and reflux uropathy, unspecified
CPT/HCPCS: 36415; 71045; 73502; 82652; 83735; 84100; 84443; 84484; 85025; 97535-GO-CO; A4663; A6209; A6213; A9150; C1758